=== PATIENT | male | born 1945 | race Caucasian/White ===

== ENCOUNTER 2021-12-21 11:41 | Outpatient (CLI) | payer MEDICARE | END 2021-12-21 11:42 | disposition home or self-care (01) | LOC: LAB 11:41 | PROVIDERS: ATTEND Internal Medicine | DX: K58.0 Irritable bowel syndrome with diarrhea (principal) | CPT/HCPCS: 87177; 87209; 87329 ==

== ENCOUNTER 2022-01-13 12:18 | Outpatient (CLI) | payer MEDICARE | END 2022-01-13 12:19 | disposition home or self-care (01) | LOC: LAB 12:18 | PROVIDERS: ATTEND Internal Medicine | DX: R19.7 Diarrhea, unspecified (principal) | CPT/HCPCS: 87493 ==

== ENCOUNTER 2022-07-28 10:32 | Outpatient (CLI) | payer MEDICARE | END 2022-07-28 10:33 | disposition home or self-care (01) | LOC: LAB 10:32 | DX: U07.1 COVID-19 (principal) ==